=== PATIENT | female | born 1940 | race Native Hawaiian/Other Pacific Islander ===

== ENCOUNTER 2017-10-02 08:43 | Emergency (ER) | payer MEDICARE ==
[2017-10-02 08:43] VITALS: BMI 27.6
[2017-10-02 09:06] VITALS: PULSE 84; RESP 18; TEMP 97.7; O2SAT 99
--- NOTE | 2017-10-02 09:27 | RAD ---
PROCEDURE: Right Wrist Radiographs. HISTORY: fall COMPARISON: None. FINDINGS: BONES: Questionable cortical discontinuity of along the posterior/ lateral aspect of the distal right radius. Possible fracture. There is no definite joint effusion/ hemarthrosis. There is no displacement. There are no other fractures identified. Normal radiocarpal alignment is maintained. JOINTS: As above SOFT TISSUES: Normal. OTHER FINDINGS: None. IMPRESSION: Questionable nondisplaced distal radial fracture. Please correlate clinically and consider further radiographic evaluation if warranted.
--- NOTE | 2017-10-02 09:42 | C.PDOC ---
History Of Present Illness 77 y/o female presents to the ED c/o right wrist pain for 6 days. The patient states she lost balance and fell and the pain has persisted since that day. The patient states she is right hand dominate. The patient denies joint injury , chest pain, LOC, headaches, and trauma. Time Seen by Provider: 10/02/17 09:12 Chief Complaint (Nursing): Upper Extremity Problem/Injury History Per: Patient History/Exam Limitations: no limitations Onset/Duration Of Symptoms: Days Current Symptoms Are (Timing): Still Present Past Medical History Reviewed: Historical Data, Nursing Documentation, Vital Signs Vital Signs: Last Vital Signs Temp 97.7 F 10/02/17 09:06 Pulse 84 10/02/17 09:06 Resp 18 10/02/17 09:06 BP 159/83 H 10/02/17 09:45 Pulse Ox 99 10/02/17 10:53 - Medical History PMH: Anemia, Arthritis, CHF, Fractures (left shoulder), HTN, Hypercholesterolemia, Peripheral Edema, Pneumonia (5 yrs ago) Denies: Chronic Kidney Disease Surgical History: Endoscopy - [facility] Procedures INCIS W REM OF FORIEGN BODY OR DEV FROM SKIN & SUBCUT TISSUE (11/04/14) INSERTION OF TOTALLY IMPLANTABLE VASC ACCESS DEVIC (06/17/14) UNILAT EXTEN SIMP MASTEC (05/13/14) Family History: States: No Known Family Hx - Social History Hx Alcohol Use: No Hx Substance Use: No Review Of Systems Except As Marked, All Systems Reviewed And Found Negative. Constitutional: Negative for: Fever, Chills Musculoskeletal: Positive for: Other (right wrist pain ) Neurological: Negative for: Headache, Dizziness Physical Exam - Physical Exam Appears: Non-toxic, No Acute Distress, Other ( ) Skin: Dry Head: Atraumatic, Normacephalic Oral Mucosa: Moist Neck: Supple Chest: Symmetrical Cardiovascular: Rhythm Regular Respiratory: Normal Breath Sounds Extremity: Tenderness, Capillary Refill (2<sec.), Swelling, Other ( to right distal forarm/wrist and no snuff box tenderness ) Neurological/Psych: Oriented x3, Normal Speech, Normal Cognition, Other (neuro focal intact ) Gait: Steady ED Course And Treatment O2 Sat by Pulse Oximetry: 99 (RA) Progress Note: The x ray is questionable and assessment the radius refract volar splint splint was applied by tech. Upon reassessment, shelbi vascular in tact no limitations. The patient is advised to have a 1-2 day follow up with the orthopedic for further evaluation. Medical Decision Making Medical Decision Making: BONES: Questionable cortical discontinuity of along the posterior/ lateral aspect of the distal right radius. Possible fracture. There is no definite joint effusion / hemarthrosis. There is no displacement. There are no other fractures identified. Normal radiocarpal alignment is maintained. JOINTS: As above SOFT TISSUES: Normal. OTHER FINDINGS: None. IMPRESSION: Questionable nondisplaced distal radial fracture. Please correlate clinically and consider further radiographic evaluation if warranted. Disposition Counseled Patient/Family Regarding: Studies Performed, Diagnosis, Need For Followup - Disposition Referrals: Jose C Fonseca MD [Staff Provider] - Disposition: HOME/ ROUTINE Disposition Time: 09:40 Condition: STABLE Additional Instructions: call doctor for an appointment gómez or loulou for pain follow up within 2 days return to hospital if symptoms worsens or progress Instructions: Wrist Fracture in Adults (ED) Forms: [facility] (Tajik), General Discharge Instructions - Clinical Impression Clinical Impression: Fracture of bone - Scribe Statement The provider has reviewed the documentation as recorded by the Scribe Claire Bang
[2017-10-02 10:01] VITALS: BP 159/83
== END 2017-10-02 09:46 | disposition home or self-care (01) ==
LOC: C.ER 08:43
DX: S52.501A Unspecified fracture of the lower end of right radius, initial encounter for closed fracture (principal); W01.0XXA Fall on same level from slipping, tripping and stumbling without subsequent striking against object, initial encounter; E78.00 Pure hypercholesterolemia, unspecified; I10 Essential (primary) hypertension; I50.9 Heart failure, unspecified

== ENCOUNTER 2018-12-12 09:10 | Outpatient (CLI) | payer MEDICARE | END 2018-12-12 09:11 | disposition home or self-care (01) | LOC: C.VASC 09:10 | DX: E11.9 Type 2 diabetes mellitus without complications (principal) ==